=== PATIENT | female | born 1990 | race Hispanic/Latino ===

== ENCOUNTER 2020-03-04 13:56 | Emergency (ER) | payer BC ==
--- NOTE | 2020-03-04 14:02 | ED.PDOC ---
History of Present Illness - General Time Seen by Provider: 03/04/20 13:59 Source: patient - History of Present Illness Initial Comments: Patient was seen upon ED arrival at 1404. 29-year-old female with no reported past medical history who presents with chief complaint of left leg swelling and pain. Patient states she first noticed the swelling earlier this morning. She reports mild swelling in the left lower leg/calf down to the ankle. She also reports mild soreness like pain throughout the lateral aspect of the calf, worse with palpation and walking, no medications taken for relief. She denies any redness, warmth, fevers, chills, chest pain, shortness of breath. No reported history of DVT or other blood clots. No family history of blood clots. She is not a smoker. She does have Mirena IUD which was placed 2 months ago in [place] by her physician there. She has not recently traveled or had prolonged immobilization. 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 She has had swelling in the left leg before but did not get it evaluated at that time. Allergies/Adverse Reactions: Allergies NO KNOWN ALLERGY Allergy (Verified 03/04/20 14:14) Home Medications: Ambulatory Orders NK 03/04/20 Review of Systems - Review of Systems Review of Systems: 03/04/20 14:12 as per HPI All other Systems: Reviewed and Negative Family Medical History - Family History Mother Family History: Unknown Physical Exam - Physical Exam General Appearance: Alert, Comfortable, No apparent distress Eyes, Ears, Nose, Throat: normal ENT inspection Neck: normal inspection Cardiovascular/Respiratory: regular rate, rhythm, no M/R/G, normal peripheral pulses, no JVD, normal breath sounds, no respiratory distress Gastrointestinal/Abdominal: non-tender Back: normal inspection Thigh/Hip: normal inspection Leg: other - Left lower leg and calf with mild nonpitting edema noted from the ankle to the inferior aspect of the left knee. No noted redness/warmth. Homans' sign is negative bilaterally. Mild soft tissue tenderness to palpation of the lateral calf noted. Knee: normal inspection, non-tender, no evidence of injury, normal ROM Ankle: normal inspection, non-tender, no evidence of injury, normal ROM Foot: normal inspection, non-tender, no evidence of injury, normal ROM, other - DP and PT pulses 2+ and equal bilaterally Neuro/Tendon: normal sensation, normal motor functions, normal tendon functions Mental Status: alert Skin: normal color, warm/dry Progress - Progress Progress: 03/04/20 14:13 Left lower extremity swelling -Nurse actually reported BL calves were equal in circumference so no objective measurement difference noted. However, as pt with subjective sensation of swelling will proceed with work-up -Etiology uncertain. Consider DVT, dependent edema, venous insufficiency, other causes. -Patient stable, no acute distress, vitals normal -Obtain blood work, D-dimer, Doppler venous ultrasound left lower extremity 03/04/20 15:45 -Doppler venous ultrasound of the left lower extremity shows no evidence of DVT. -Lab work is largely unremarkable, D-dimer level normal. No emergent etiologies appear present. Discussed all findings as well as diagnosis of dependent edema. Advised leg elevation, compression stockings, as needed [id number] analgesics. Follow-up closely with PCP -Discharged home in good condition, return warnings discussed Luis Alfredo Hdz MD Billing #[id number] Laboratory Results - last 24 hr 03/04/20 03/04/20 03/04/20 14:20 14:20 14:20 WBC 8.1 RBC 3.61 L Hgb 11.8 L Hct 31.4 L MCV 87.1 MCH 32.8 H MCHC 37.6 H RDW 17.6 H Plt Count 205 MPV 8.9 Absolute Neuts (auto) 5.70 Absolute Lymphs (auto) 1.70 Absolute Monos (auto) 0.50 Absolute Eos (auto) 0.10 Absolute Basos (auto) 0.00 Neutrophils % 71.2 Lymphocytes % 21.4 Monocytes % 6.1 Eosinophils % 0.8 L Basophils % 0.5 D-Dimer, Quantitative < 131.0 L Sodium 138 Potassium 3.5 L Chloride 102 Carbon Dioxide 26 Anion Gap 13.5 BUN 14 Creatinine 0.64 BUN/Creatinine Ratio 21.9 H Random Glucose 110 H Serum Osmolality 276.8 Calcium 9.2 Departure - Departure Clinical Impression: Dependent edema Time of Disposition: 15:44 Disposition: Discharge to Home or Self Care Condition: Good Departure Forms: ED Discharge - Pt. Copy, Patient Portal Self Enrollment Instructions: Dependent Edema (DC) Diet: low salt diet Activity: increase activity as tolerated Referrals: Kasia Berumen NP [Primary Care Provider] - 1-2 Weeks Home Medications: Ambulatory Orders NK 03/04/20 Additional Instructions: To help prevent swelling of the legs, keep the legs elevated often and wear compression stockings as needed. For pain you may take [id number] medication such as Tylenol and ibuprofen as needed. Return to the ED if you develop worsening swelling/pain/redness of the legs or if you develop other concerning symptoms such as chest pain or shortness of breath, etc. Follow-up with your primary care physician is recommended in the next 1 to 2 weeks for repeat evaluation or sooner as needed.
--- NOTE | 2020-03-04 15:36 | US ---
EXAM DESCRIPTION: Venous,Lower Extremity LT: ULTRASOUND. CLINICAL HISTORY: acute LLE swelling, pain COMPARISON: None Available. TECHNIQUE: Plasencia-scale and doppler sonographic evaluation of the deep venous system of the left lower extremity. FINDINGS: Doppler evaluation shows normal color flow and normal phasicity and augmentation of the left common femoral vein, left femoral vein, popliteal vein, left greater saphenous vein, junction with the CFV. Also normal color flow and normal phasicity and augmentation of the peroneal, and posterior tibial vein. The left lower extremity deep veins were completely compressible; normal occlusion with transducer pressure. Plasencia-scale survey showed no echogenic thrombus within these veins. IMPRESSION: 1. Duplex ultrasound evaluation of the left lower extremity deep venous system showing no evidence of thrombosis. Electronically signed by: Sal Chilel MD 03/04/2020 3:34 PM [facility]
[2020-03-04 16:01] VITALS: BP 126/73; TEMP 95.9; O2SAT 99
== END 2020-03-04 15:58 | disposition home or self-care (01) ==
LOC: ER 13:56
DX: R60.0 Localized edema (principal); M79.662 Pain in left lower leg

== ENCOUNTER → 2020-04-01 | Outpatient (CLI) | payer BC | LOC: YCFC.O 15:42 | PROVIDERS: ATTEND Nurse Practitioner Family | DX: Z11.59 Encounter for screening for other viral diseases (principal) ==